=== PATIENT | female | born 1985 | race Caucasian/White ===

== ENCOUNTER 2017-08-14 14:51 | Emergency (ER) | payer BC, OTHER ==
[2017-08-14 15:00] VITALS: BMI 32.9
--- NOTE | 2017-08-14 15:14 | PDOC ---
Attending Attestation - HPI HPI: 08/14/17 16:11 Pain has been intermittent for one week, but became acutely worse last night. Pain is now constant and severe. Denies nausea, vomiting or vaginal bleeding. - Medical Decision Making 08/14/17 16:16 Pt presents to the ED complaining of the acute onset of severe RLQ pain. Patient is 5 weeks , by dates and states that her OB was concerned for ectopic. Tachycardic but normotensive on ED arrival. PAtient taken emergently to US to rule out ectopic . Will give pain control, check pelvic exam and labs and reassess. <Keyana Dey - Last Filed: 08/14/17 16:11> - HPI HPI: 08/14/17 15:42 The patient is a 32 year old female , with a significant PMH of appendectomy, GERD, right Ovarian cyst presents to the emergency department with right lower quadrant pain. The patient reported passing blood colts vaginal today while using the bathroom. - Physicial Exam PE: 08/14/17 15:40 GENERAL: (+) uncomfortable and in mild acute distress. Awake, alert, and fully oriented HEAD: No signs of trauma EYES: PERRLA, EOMI, sclera anicteric, conjunctiva clear ENT: Auricles normal inspection, hearing grossly normal, nares patent, oropharynx clear without exudates. Moist mucosa NECK: Normal ROM, supple, no lymphadenopathy, JVD, or masses LUNGS: Breath sounds equal, clear to auscultation bilaterally. No wheezes, and no crackles HEART: Regular rate and rhythm, normal S1 and S2, no murmurs, rubs or gallops ABDOMEN: (+) Right lower quadrant pain with guarding. Soft, nontender, normoactive bowel sounds. no rebound. No masses EXTREMITIES: Normal range of motion, no edema. No clubbing or cyanosis. No cords, erythema, or tenderness NEUROLOGICAL: Cranial nerves II through XII grossly intact. Normal speech. SKIN: Warm, Dry, normal turgor, no rashes or lesions noted. - Medical Decision Making 08/14/17 15:40 Documentation prepared by Ness Lopez, acting as medical interpreter for Keyana Dey. <Ness Lopez - Last Filed: 08/14/17 16:36>
[2017-08-14] MEDS ORDERED: SODIUM CHLORIDE 0.9% 500 ML INFUS.BAG IV ONE (15:33)
--- NOTE | 2017-08-14 15:45 | PDOC ---
History of Present Illness - General Chief Complaint: Pain, Acute Stated Complaint: ABDOMINAL PAIN/5 WKS Time Seen by Provider: 08/14/17 15:13 History Source: Patient Exam Limitations: No Limitations - History of Present Illness Initial Comments: 08/14/17 15:43 The patient is a 32F with a PMH of anxiety and depression, positive test (LMP 5 weeks ago) who presents to the ER with worsening abdominal pain. The patient states that she has suprapubic pain which radiates down to her groin and up to her R flank. She also describes shoulder pain b/l. She states that it was intermittent until 3 hours ago when it worsened and became constant. Surgical history significant for appendectomy and R ovarian cyst removal. Pt states she follows her BHCG levels with her billet heater in [place] and the numbers were not increasing as expected. Past History - Past Medical History Allergies/Adverse Reactions: Allergies Allergy/AdvReac Type Severity Reaction Status Date / Time No Known Allergies Allergy Verified 08/14/17 14:57 Home Medications: Ambulatory Orders Cholecalciferol (Vitamin D3) [Vitamin D3] 1,000 unit PO DAILY 05/11/14 Vit/Iron Fum/Folic AC [ Tablet] 1 each PO DAILY 05/11/14 Sertraline HCl [Zoloft -] 25 mg PO HS 05/11/14 Dicyclomine HCl 10 mg PO DAILY 08/14/17 Oxycodone HCl/Acetaminophen [Percocet 5-325 mg Tablet] 1 tab PO Q6H PRN #10 tablet MDD 6 08/14/17 Pantoprazole Sodium [Protonix -] 20 mg PO DAILY 08/14/17 COPD: No Diabetes: No GI Disorders: Yes (GERD) HTN: No Psychiatric Problems: Yes - Surgical History Appendectomy: Yes - Suicide/Smoking/Psychosocial Hx Smoking History: Never smoked Hx Alcohol Use: No Substance Use Type: None Review of Systems - Review of Systems Able to Perform ROS?: Yes Comments:: 08/14/17 15:53 GENERAL/CONSTITUTIONAL: Positive for chills. No fever. No weakness. HEAD, EYES, EARS, NOSE AND THROAT: No change in vision. No ear pain or discharge. No sore throat. CARDIOVASCULAR: No chest pain, palpitations, or lightheadedness. RESPIRATORY: No cough, wheezing, shortness of breath, or hemoptysis. GASTROINTESTINAL: Positive for abdominal pain. No nausea, vomiting, diarrhea, or constipation. GENITOURINARY: No dysuria, frequency, hematuria, or change in urination. MUSCULOSKELETAL: Positive for shoulder pain. No neck or back pain. SKIN: No rash or lesions. NEUROLOGIC: No headache, numbness, tingling, weakness, loss of consciousness, or change in strength/sensation. ENDOCRINE: No increased thirst. No abnormal weight change. HEMATOLOGIC/LYMPHATIC: No anemia, easy bleeding, or history of blood clots. ALLERGIC/IMMUNOLOGIC: No hives or skin allergy. Is the patient limited Latvian proficient: No *Physical Exam - Vital Signs Last Vital Signs Temp Pulse Resp BP Pulse Ox 98.5 F 112 H 19 124/77 100 08/14/17 14:57 08/14/17 14:57 08/14/17 14:57 08/14/17 14:57 08/14/17 14:57 - Physical Exam Comments: 08/14/17 15:56 GENERAL: Well developed, well nourished. Awake and alert. In mild distress. HEENT: Normocephalic, atraumatic. Hearing grossly normal. Moist mucous membranes. PERRLA, EOMI. No conjunctival pallor. Sclera are non-icteric. Oropharynx is clear. NECK: Supple. Full ROM. No JVD. No lymphadenopathy. CARDIOVASCULAR: Regular rate and rhythm. No murmurs, rubs, or gallops. PULMONARY: No evidence of respiratory distress. Lungs clear to auscultation bilaterally. No wheezing, rales or rhonchi. ABDOMINAL: Soft. Tender to deep palpation in suprapubic region. Rebound in suprapubic region. Non-distended. No guarding. No organomegaly. GENITOURINARY: R CVA tenderness. PELVIC: Closed internal os; R adnexal tenderness; physiologic discharge present. No vaginal bleeding noted. MUSCULOSKELETAL: Normal range of motion at all joints. No bony deformities or tenderness. EXTREMITIES: No cyanosis. No clubbing. No edema. No calf tenderness. SKIN: Warm and dry. Normal capillary refill. No rashes. No jaundice. NEUROLOGICAL: Alert, awake, appropriate. Cranial nerves 2-12 intact. Normal speech. Gait is normal without ataxia. PSYCHIATRIC: Cooperative. Good eye contact. Appropriate mood and affect. ED Treatment Course - LABORATORY CBC & Chemistry Diagram: 08/14/17 15:40 08/14/17 15:40 Medical Decision Making - Medical Decision Making 08/14/17 16:02 The patient is a 32F with a PMH of anxiety, depression, and (LMP July 12) who presents to the ER with severe abdominal pain. UTI vs Pyelo vs ectopic . Labs drawn and U/S transvag ordered. Pending labs and imaging. Pain control w/ fentanyl. 08/14/17 17:19 Pt required more pain control - given morphine. U/S Reading: IMPRESSION: 1. Intrauterine gestational sac containing a yolk sac but no definite pole with mean gestational sac diameter corresponding to an estimated gestational age of 5 weeks and 0 days. 2. At least moderate size subchorionic hemorrhage surrounding the gestational sac. 3. No evidence of ovarian torsion at this time. CBC and CMP WNL. BHCG 1287. it as 658 per patient and Wednesday it was 395.4. 08/14/17 18:41 Pt's pain is controlled with percocet. Will d/c home with percocet and OB f/u. Pt understands the need to return with fever, chills, nausea, vomiting, profuse vaginal bleeding, and worsening abdominal pain. *DC/Admit/Observation/Transfer Diagnosis at time of Disposition: Acute abdominal pain - Discharge Dispostion Disposition: HOME Condition at time of disposition: Stable Admit: No - Prescriptions Prescriptions: Oxycodone HCl/Acetaminophen [Percocet 5-325 mg Tablet] 1 tab PO Q6H PRN #10 tablet MDD 6 PRN Reason: Pain Level 7 - 10 - Referrals - Patient Instructions Printed Discharge Instructions: DI for Abdominal Pain -- Early Additional Instructions: Please return to the ER if you have any signs or symptoms of chest pain, shortness of breath, uncontrollable fever, chills, nausea, vomiting, numbness, tingling, or weakness in any part of your body, changes in vision, or slurred speech. Please take your medications as prescribed. Please follow up with your OB on Wednesday. Please return to the ER if symptoms persist, worsen, or new symptoms arise. - Post Discharge Activity
[2017-08-14 16:00] LABS: BASO % 0.8 % (0-2.0); EOS % 2.1 % (0-4.5); HEMATOCRIT 38.1 % (32.4-45.2); HEMOGLOBIN 13.1 GM/dL (10.7-15.3); LYMPH % 37.8 % (8-40); MCH 30.9 pg (25.7-33.7); MCHC 34.5 g/dl (32.0-36.0); MEAN CELL VOLUME 89.5 fl (80-96); NEUT % 51.3 % (42.8-82.8); PLATELET COUNT 259 K/MM3 (134-434); RBC 4.26 M/mm3 (3.60-5.2); RDW 13.2 % (11.6-15.6); WHITE BLOOD COUNT 7.1 K/mm3 (4.0-10.0)
[2017-08-14 16:12] LABS: ALBUMIN 4.6 g/dl (3.4-5.0); ANION GAP 10 (8-16); BILIRUBIN,TOTAL 0.5 mg/dL (0.2-1.0); BLOOD UREA NITROGEN 6 mg/dL (7-18); CALCIUM 9.3 mg/dL (8.5-10.1); CHLORIDE 103 mmol/L (98-107); CO2 25 mmol/L (21-32); CREATININE 0.5 mg/dL (0.55-1.02); GLUCOSE,RANDOM 81 mg/dL (74-106); POTASSIUM 3.6 mmol/L (3.5-5.1); SGOT/AST 12 U/L (15-37); SGPT/ALT 23 U/L (12-78); SODIUM 138 mmol/L (136-145); TOT PROT 8.2 g/dl (6.4-8.2)
[2017-08-14 16:27] LABS: ALK PHOS 57 U/L (45-117)
[2017-08-14 16:32] LABS: URINE APPEARANCE CLOUDY; URINE BILIRUBIN NEGATIVE (<2.0 mg/dL); URINE BLOOD NEGATIVE (NEGATIVE); URINE COLOR YELLOW; URINE GLUCOSE (UA) NEGATIVE (NEGATIVE); URINE KETONE 1+ (NEGATIVE); URINE LEUK ESTERASE NEGATIVE (NEGATIVE); URINE NITRITE NEGATIVE (NEGATIVE); URINE PROTEIN NEGATIVE (NEGATIVE); URINE UROBILINOGEN NEGATIVE mg/dL (0.2-1.0)
[2017-08-14] MEDS ORDERED: morphine CARPU-JECT 4 MG/1 ML DISP.SYRIN IVPUSH ONE (16:33)
[2017-08-14] MEDS ORDERED: morphine SULFATE 4 MG/ML VIAL ONE (16:39)
[2017-08-14 19:02] VITALS: BP 133/89; PULSE 89; TEMP 98.7
--- NOTE | 2017-08-15 09:22 | EKG ---
Test Reason : Blood Pressure : / mmHG Vent. Rate : 088 BPM Atrial Rate : 088 BPM P-R Int : 138 ms QRS Dur : 094 ms QT Int : 390 ms P-R-T Axes : 037 018 034 degrees QTc Int : 471 ms NORMAL SINUS RHYTHM WITH SINUS ARRHYTHMIA NONSPECIFIC T WAVE ABNORMALITY ABNORMAL ECG NO PREVIOUS ECGS AVAILABLE Confirmed by DAHLIA PETERSON, LAISHA ([id number]) on 08/15/2017 9:21:43 AM Referred By: Confirmed By:LAISHA VILLAGOMEZ MD
== END 2017-08-14 19:05 | disposition home or self-care (01) ==
LOC: JER 14:51
PROC: 3E033NZ Introduction of Analgesics, Hypnotics, Sedatives into Peripheral Vein, Percutaneous Approach (ICD-10-PCS; principal; 2017-08-14)
PROC: 3E033NZ Introduction of Analgesics, Hypnotics, Sedatives into Peripheral Vein, Percutaneous Approach (ICD-10-PCS; 2017-08-14)
DX: O26.891 Other specified pregnancy related conditions, first trimester (principal); R10.31 Right lower quadrant pain; Z3A.01 Less than 8 weeks gestation of pregnancy
CPT/HCPCS: 36415; 76817-TC; 80053; 81003; 84702; 85025; 86850; 86900; 86901; 87077; 87086; 93005; 93010; 99284-25